=== PATIENT | female | born 1965 | race Two or more races ===

== ENCOUNTER 2017-04-29 20:56 | Emergency (ER) | payer MEDICARE ==
[~2017-04-29] VITALS: Ht 132.1 cm; Wt 33.1 kg
[2017-04-29 20:56] VITALS: BP 112/66
--- NOTE | 2017-04-29 21:10 | Emergency Room Report ---
History of Present Illness General Chief Complaint: Behavioral Complaint Source: Patient (Neftaly Read M.D.) Present Illness HPI The patient is brought in from a [facility] via EMS. She's anxious and has headache. She has Coburn's syndrome. 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 She's anxious because she's trying to return to [place]. She tried to get help today he was unable to. She's denies suicidal or homicidal ideation at this time. No fever, NVD, change vision, dysuria, URI sy, chest pain. No polies. (Neftaly Read M.D.) Allergies: Coded Allergies: No Known Allergies (Unverified , 04/29/17) Patient History Past Medical History: see triage record, DM, other - Coburn's syndrome Social History: Denies: smoking, alcohol use, drug use Social History Narrative from [place] Now: No Reviewed Nursing Documentation: PMH: Agreed, PSxH: Agreed (Neftaly Read M.D.) Nursing Documentation-PMH Past Medical History: No History, Except For Hx Cardiac Problems: No - Coburn Syndrome Hx Diabetes: Yes (Neftaly Read M.D.) Review of Systems All Other Systems: negative except mentioned in HPI (Neftaly Read M.D.) Physical Exam Vital Signs Date Time Temp Pulse Resp B/P (MAP) Pulse Ox O2 Delivery O2 Flow Rate FiO2 04/29/17 20:48 98.2 86 18 112/66 99 Room Air Sp02 EP Interpretation: reviewed, normal General Appearance: no apparent distress, alert, GCS 15, other - short stature Eyes: bilateral eye normal inspection, bilateral eye PERRL ENT: moist mucus membranes Neck: full range of motion, supple, no bony tend Respiratory: lungs clear, normal breath sounds, no rhonchi Cardiovascular #1: regular rate, rhythm, no edema Cardiovascular #2: 2+ radial (L) Gastrointestinal: normal bowel sounds, non tender, soft, no mass, non-distended Genitourinary: no CVA tenderness Musculoskeletal: back normal, normal range of motion, other - widened nailbeds (like clubbing) Neurologic: alert, oriented x3, motor strength/tone normal, DTRs symmetric, SLR negative, cerebellar normal, normal gait, speech normal Psychiatric: no suicidal/homicidal ideation, depressed affect, anxious - pressured Skin: normal color, no rash, other - see MS re nails (Neftaly Read M.D.) Medical Decision Making Diagnostic Impression: Primary Impression: Depression Qualified Codes: F32.9 - Major depressive disorder, single episode, unspecified Additional Impressions: Hyperglycemia Diabetes Qualified Codes: E11.9 - Type 2 diabetes mellitus without complications Situational crisis Turners syndrome ER Course Patient syndrome that presents with anxiety and depression due to social situation. She denies suicidal ideation at this time. She states she's not taking medication at the moment. She's also not taking medication for diabetes. Differential includes exacerbation of underlying psychopathy, electrolyte imbalance, hyperglycemia, and other endocrine disorders amongst others. Based on her clinical exam she appears stable however we need to get EKG, and labs. There are no respiratory symptoms at this time. The patient will be treated with IV hydration. She'll also receive a small dose of Ativan. Blood glucose is high. She's treated with a bolus of saline and with continued IV hydration. Glucose still high after bolus. Metformin started. Continued hydration. Plan is repeat Accu-Chek in the morning. We will request a nursing home social worker evaluation. Accucheck AM is 177. Signed out to Dr. Oliva. Laboratory Tests Test 04/29/17 21:40 White Blood Count 7.6 K/UL (4.8-10.8) Red Blood Count 4.44 M/UL (4.20-5.40) Hemoglobin 13.7 G/DL (12.0-16.0) Hematocrit 39.0 % (37.0-47.0) Mean Corpuscular Volume 88 FL (80-99) Mean Corpuscular Hemoglobin 30.9 PG (27.0-31.0) Mean Corpuscular Hemoglobin Concent 35.2 G/DL (32.0-36.0) Red Cell Distribution Width 11.1 % (11.6-14.8) L Platelet Count 298 K/UL (150-450) Mean Platelet Volume 5.8 FL (6.5-10.1) L Neutrophils (%) (Auto) 66.3 % (45.0-75.0) Lymphocytes (%) (Auto) 26.4 % (20.0-45.0) Monocytes (%) (Auto) 5.4 % (1.0-10.0) Eosinophils (%) (Auto) 0.9 % (0.0-3.0) Basophils (%) (Auto) 1.0 % (0.0-2.0) Urine Color Pale yellow Urine Appearance Clear Urine pH 6.5 (4.5-8.0) Urine Specific [place] 1.010 (1.005-1.035) Urine Protein Negative (NEGATIVE) Urine Glucose (UA) 4+ (NEGATIVE) H Urine Ketones 2+ (NEGATIVE) H Urine Occult Blood Negative (NEGATIVE) Urine Nitrite Negative (NEGATIVE) Urine Bilirubin Negative (NEGATIVE) Urine Urobilinogen Normal MG/DL (0.0-1.0) Urine Leukocyte Esterase Negative (NEGATIVE) Sodium Level 136 mEQ/L (135-145) Potassium Level 3.4 mEQ/L (3.4-4.9) Chloride Level 99 mEQ/L (98-107) Carbon Dioxide Level 22 mEQ/L (20-30) Anion Gap 15 (5-15) Blood Urea Nitrogen 12 mg/dL (7-23) Creatinine 0.6 mg/dL (0.5-0.9) Estimate Glomerular Filtration Rate > 60 mL/min (>60) Glucose Level 494 mg/dL (74-106) H Calcium Level 8.9 mg/dL (8.6-10.2) Total Bilirubin 0.4 mg/dL (0.0-1.2) Aspartate Amino Transferase (AST) 12 U/L (5-40) Alanine Aminotransferase (ALT) 33 U/L (3-33) Alkaline Phosphatase 98 U/L (35-104) Total Creatine Kinase 58 U/L (26-140) Troponin I < 0.30 ng/mL (<=0.30) Total Protein 6.3 g/dL (6.6-8.7) L Albumin 4.0 g/dL (3.5-5.2) Globulin 2.3 g/dL Albumin/Globulin Ratio 1.7 (1.0-2.7) Thyroid Stimulating Hormone (TSH) 3.980 uIU/mL (0.300-4.500) Salicylates Level < 1 mg/dL (10-30) L Urine Opiates Screen Negative (NEGATIVE) Acetaminophen Level < 10 ug/mL (10-30) L Urine Barbiturates Screen Negative (NEGATIVE) Phencyclidine (PCP) Screen Negative (NEGATIVE) Urine Amphetamines Screen Negative (NEGATIVE) Urine Benzodiazepines Screen Negative (NEGATIVE) Urine Cocaine Screen Negative (NEGATIVE) Urine Marijuana (THC) Screen Negative (NEGATIVE) Serum Alcohol < 10 mg/dL (Neftaly Read M.D.) ER Course Received signout 52-year-old woman, history of Coburn syndrome, depression, diabetes, states that she came via bus from [place] to [place] 2 days ago to "start the a new life", patient now states that she wants to go back to [place] however has no way to get back clear. Otherwise at this time she has no medical complaints. No SI or HI Pending social work consult (Morales Oliva M.D.) EKG Diagnostic Results Rate: normal Rhythm: NSR ST Segments: no acute changes (Neftaly Read M.D.) Rhythm Strip Diag. Results EP Interpretation: yes Rhythm: NSR, no PVC's, no ectopy (Neftaly Read M.D.) Last Vital Signs Date Time Temp Pulse Resp B/P (MAP) Pulse Ox O2 Delivery O2 Flow Rate FiO2 04/30/17 12:18 97.8 82 16 107/69 99 Room Air Status: improved (Neftaly Read M.D.) Disposition: HOME, SELF-CARE - [facility] care facility Condition: Improved Scripts Blood-Glucose Meter, Drum-Type (ACCU-CHEK) 1 Each Kit EACH DAILY, #1 Prov: Neftaly Read M.D. 04/30/17 Metformin Hcl* (METFORMIN HCL*) 500 Mg Tablet 500 MG ORAL TWICE A DAY, #60 TAB Prov: Neftaly Read M.D. 04/30/17 Neftaly Read M.D. Apr 29, 2017 21:10 Morales Oliva M.D. Apr 30, 2017 06:40
[2017-04-29] MEDS ORDERED: LORazepam 1mg tab ORAL ONE (21:15)
[2017-04-29 22:01] LABS: EOSINOPHILS % (AUTO) 0.9 % (0.0-3.0); LYMPHOCYTES % (AUTO) 26.4 % (20.0-45.0); MEAN CORPUSCULAR HEMOGLOBIN 30.9 PG (27.0-31.0); MEAN CORPUSCULAR HGB CONC 35.2 G/DL (32.0-36.0); MEAN CORPUSCULAR VOLUME 88 FL (80-99); MEAN PLATELET VOLUME 5.8 FL (6.5-10.1); MONOCYTES % (AUTO) 5.4 % (1.0-10.0); NEUTROPHILS % (AUTO) 66.3 % (45.0-75.0); PLATELET COUNT 298 K/UL (150-450); RED BLOOD COUNT 4.44 M/UL (4.20-5.40); RED CELL DISTRIBUTION WIDTH 11.1 % (11.6-14.8); WHITE BLOOD COUNT 7.6 K/UL (4.8-10.8)
[2017-04-29 22:06] LABS: APPEARANCE,URINE CLEAR; KETONES,URINE 2+ (NEGATIVE); LEUKOCYTE ESTERASE ,URINE NEGATIVE (NEGATIVE); NITRITE,URINE NEGATIVE (NEGATIVE); PH,URINE 6.5 (4.5-8.0); PROTEIN,URINE NEGATIVE (NEGATIVE); UROBILINOGEN,URINE NORMAL MG/DL (0.0-1.0)
[2017-04-29 22:25] LABS: TROPONIN I < 0.30 ng/mL (<=0.30)
[2017-04-29 22:29] LABS: ACETAMINOPHEN < 10 ug/mL (10-30); ALANINE AMINOTRANSFERASE 33 U/L (3-33); ALBUMIN/GLOBULIN RATIO 1.7 (1.0-2.7); ALCOHOL < 10 mg/dL; ANION GAP 15 (5-15); ASPARTATE AMINO TRANSFERASE 12 U/L (5-40); CALCIUM 8.9 mg/dL (8.6-10.2); CARBON DIOXIDE 22 mEQ/L (20-30); CHLORIDE 99 mEQ/L (98-107); CREATININE 0.6 mg/dL (0.5-0.9); GLOMERULAR FILTRATION RATE > 60 mL/min (>60); HEMOLYSIS 3; POTASSIUM 3.4 mEQ/L (3.4-4.9); SODIUM 136 mEQ/L (135-145); TOTAL PROTEIN 6.3 g/dL (6.6-8.7)
[2017-04-29 22:56] VITALS: BP 119/68
[2017-04-30 00:56] VITALS: BP 109/61
[2017-04-30 02:56] VITALS: BP 120/69
[2017-04-30 04:56] VITALS: BP 110/63
[2017-04-30] MEDS ORDERED: ACCU-CHEK1 EAC5 MC (04:57)
[2017-04-30] MEDS ORDERED: METFORMIN HCL500 M1 ORAL (04:57)
[2017-04-30 06:56] VITALS: BP 108/69
[2017-04-30 12:17] VITALS: BP 107/69
[2017-04-30 12:18] VITALS: BP 107/69
--- NOTE | 2017-04-30 14:42 | Cardiology Report ---
APPROVED REPORT EKG Measurement Heart [id number] Normal sinus rhythm with sinus arrhythmia Normal ECG
== END 2017-04-30 12:23 | disposition home or self-care (01) ==
LOC: EDBD 20:56 → EMR 23:30
DX: F32.9 Major depressive disorder, single episode, unspecified (principal); E11.65 Type 2 diabetes mellitus with hyperglycemia; F43.20 Adjustment disorder, unspecified; F41.9 Anxiety disorder, unspecified; Q96.9 Turner's syndrome, unspecified; R51 Headache
CPT/HCPCS: 36415; 80053; 80300; 81003; 82550; 82962; 84443; 84484; 85025; 93005; 96360; 96361; 99284; G0480; 80329

== ENCOUNTER 2017-09-29 17:36 | Inpatient (IN) | payer MEDICARE ==
[~2017-09-29] VITALS: Ht 121.9 cm; Wt 31.8 kg
[~2017-09-29 17:36] MED LIST: ACCU-CHEK1 EAC5 MC; METFORMIN HCL500 M1 ORAL; NKM
[2017-09-29 18:05] VITALS: BP 148/87
[2017-09-29 19:03] LABS: APPEARANCE,URINE CLEAR; BILIRUBIN, URINE NEGATIVE (NEGATIVE); COLOR,URINE PALE YELLOW; GLUCOSE, URINE (UA) 4+ (NEGATIVE); KETONES,URINE NEGATIVE (NEGATIVE); LEUKOCYTE ESTERASE ,URINE NEGATIVE (NEGATIVE); NITRITE,URINE NEGATIVE (NEGATIVE); PH,URINE 5 (4.5-8.0); PROTEIN,URINE NEGATIVE (NEGATIVE); UROBILINOGEN,URINE NORMAL MG/DL (0.0-1.0)
[2017-09-29 19:05] LABS: BASOPHILS % (AUTO) 0.8 % (0.0-2.0); EOSINOPHILS % (AUTO) 0.3 % (0.0-3.0); HEMATOCRIT 43.5 % (37.0-47.0); HEMOGLOBIN 14.8 G/DL (12.0-16.0); MEAN CORPUSCULAR VOLUME 88 FL (80-99); MONOCYTES % (AUTO) 4.6 % (1.0-10.0); NEUTROPHILS % (AUTO) 75.4 % (45.0-75.0); PLATELET COUNT 351 K/UL (150-450); RED BLOOD COUNT 4.94 M/UL (4.20-5.40); RED CELL DISTRIBUTION WIDTH 11.1 % (11.6-14.8)
[2017-09-29 19:12] LABS: ANION GAP 10 mmol/L (5-15); BLOOD UREA NITROGEN 15 mg/dL (7-18); CALCIUM 8.9 MG/DL (8.5-10.1); CARBON DIOXIDE 24 MMOL/L (21-32); CHLORIDE 101 MMOL/L (98-107); CREATININE 0.7 MG/DL (0.55-1.30); POTASSIUM 3.9 MMOL/L (3.5-5.1); SODIUM 135 MMOL/L (136-145)
[2017-09-29 19:16] LABS: ALANINE AMINOTRANSFERASE 41 U/L (12-78); ALBUMIN 3.7 G/DL (3.4-5.0); ALBUMIN/GLOBULIN RATIO 1.1 (1.0-2.7); ALKALINE PHOSPHATASE 117 U/L (46-116); ASPARTATE AMINO TRANSFERASE 16 U/L (15-37); BILIRUBIN,TOTAL 0.4 MG/DL (0.2-1.0)
[2017-09-29] MEDS: metFORMIN 500mg tab ORAL SCH ×2 (19:19→19:34)
[2017-09-29 19:37] VITALS: BP 108/64
[2017-09-29] MEDS ORDERED: Mylanta II UD 30ml ORAL PRN (21:45)
[2017-09-29] MEDS ORDERED: Nitroglycerin Subl 0.4mg tab SL PRN (21:45)
[2017-09-29] MEDS ORDERED: Morphine Sulfate 2mg/ml Inj IVP PRN (21:45)
[2017-09-29] MEDS ORDERED: Miralax 17gm pkt ORAL PRN (21:45)
[2017-09-29] MEDS ORDERED: Ketorolac 30mg Inj IV PRN (21:45)
[2017-09-29] MEDS ORDERED: Albuterol/Ipratropium 3ml neb HHN PRN (21:45)
--- NOTE | 2017-09-29 21:57 | Emergency Room Report ---
History of Present Illness General Chief Complaint: Headache Source: Patient Present Illness HPI Patient 52 female brought in by EMS after increased headache in generalized weakness. The patient prior history of type 2 diabetes. She had reportedly been noncompliant with her medications. Patient states she prior history of Coburn's syndrome. She denies any fever. Allergies: Coded Allergies: No Known Allergies (Unverified , 04/29/17) Patient History Past Medical History: see triage record Reviewed Nursing Documentation: PMH: Agreed, PSxH: Agreed Nursing Documentation-PMH Hx Diabetes: Yes Review of Systems All Other Systems: negative except mentioned in HPI Physical Exam Vital Signs Date Time Temp Pulse Resp B/P (MAP) Pulse Ox O2 Delivery O2 Flow Rate FiO2 09/29/17 17:30 98.5 92 16 148/87 99 Room Air 98.4 Sp02 EP Interpretation: reviewed, normal General Appearance: normal inspection, well appearing, no apparent distress, alert, thin, Chronically Ill Head: atraumatic ENT: normal ENT inspection, hearing grossly normal, normal voice Neck: normal inspection, full range of motion, supple, no bony tend Respiratory: normal inspection, lungs clear, normal breath sounds, no respiratory distress, no retraction, no wheezing Cardiovascular #1: regular rate, rhythm, no edema Gastrointestinal: normal inspection, normal bowel sounds, non tender, soft, no guarding, no hernia Genitourinary: no CVA tenderness Musculoskeletal: normal inspection, back normal, normal range of motion Neurologic: normal inspection, alert, oriented x3, responsive, supply chain analyst III-XII nml as tested, speech normal Psychiatric: normal inspection, judgement/insight normal, mood/affect normal Skin: normal inspection, normal color, no rash Medical Decision Making Diagnostic Impression: Primary Impression: Uncontrolled diabetes mellitus Additional Impression: Coburn syndrome ER Course Patient presented for headache and elevated blood sugar. Differential diagnoses include was not limited to medication noncompliance, diabetic ketoacidosis, abscess among other. Because of complexity of patient's case laboratory testing and imaging studies were ordered. The patient given IV fluids as well as IV insulin and metformin. Patient noted to have elevated blood sugar. Dr. Echevarria was contacted for inpatient management due to complexity of medical condition. Labs Test 09/29/17 18:36 White Blood Count 9.0 K/UL (4.8-10.8) Red Blood Count 4.94 M/UL (4.20-5.40) Hemoglobin 14.8 G/DL (12.0-16.0) Hematocrit 43.5 % (37.0-47.0) Mean Corpuscular Volume 88 FL (80-99) Mean Corpuscular Hemoglobin 29.9 PG (27.0-31.0) Mean Corpuscular Hemoglobin Concent 34.0 G/DL (32.0-36.0) Red Cell Distribution Width 11.1 % (11.6-14.8) Platelet Count 351 K/UL (150-450) Mean Platelet Volume 6.0 FL (6.5-10.1) Neutrophils (%) (Auto) 75.4 % (45.0-75.0) Lymphocytes (%) (Auto) 19.0 % (20.0-45.0) Monocytes (%) (Auto) 4.6 % (1.0-10.0) Eosinophils (%) (Auto) 0.3 % (0.0-3.0) Basophils (%) (Auto) 0.8 % (0.0-2.0) Urine Color Pale yellow Urine Appearance Clear Urine pH 5 (4.5-8.0) Urine Specific [place] 1.010 (1.005-1.035) Urine Protein Negative (NEGATIVE) Urine Glucose (UA) 4+ (NEGATIVE) Urine Ketones Negative (NEGATIVE) Urine Occult Blood 1+ (NEGATIVE) Urine Nitrite Negative (NEGATIVE) Urine Bilirubin Negative (NEGATIVE) Urine Urobilinogen Normal MG/DL (0.0-1.0) Urine Leukocyte Esterase Negative (NEGATIVE) Urine RBC 2-4 /HPF (0 - 2) Urine WBC 0-2 /HPF (0 - 2) Urine Squamous Epithelial Cells Few /LPF (NONE/OCC) Urine Bacteria Few /HPF (NONE) Sodium Level 135 MMOL/L (136-145) Potassium Level 3.9 MMOL/L (3.5-5.1) Chloride Level 101 MMOL/L (98-107) Carbon Dioxide Level 24 MMOL/L (21-32) Anion Gap 10 mmol/L (5-15) Blood Urea Nitrogen 15 mg/dL (7-18) Creatinine 0.7 MG/DL (0.55-1.30) Estimat Glomerular Filtration Rate > 60 mL/min (>60) Glucose Level 465 MG/DL (74-106) Calcium Level 8.9 MG/DL (8.5-10.1) Total Bilirubin 0.4 MG/DL (0.2-1.0) Aspartate Amino Transf (AST/SGOT) 16 U/L (15-37) Alanine Aminotransferase (ALT/SGPT) 41 U/L (12-78) Alkaline Phosphatase 117 U/L (46-116) Troponin I 0.000 ng/mL (0.000-0.056) Total Protein 7.1 G/DL (6.4-8.2) Albumin 3.7 G/DL (3.4-5.0) Globulin 3.4 g/dL Albumin/Globulin Ratio 1.1 (1.0-2.7) Last Vital Signs Date Time Temp Pulse Resp B/P (MAP) Pulse Ox O2 Delivery O2 Flow Rate FiO2 09/29/17 19:37 98.4 16 108/64 99 Room Air 98.4 09/29/17 17:30 92 Status: unchanged Disposition: ADMITTED INPATIENT Condition: Serious Referrals: NON PHYSICIAN (PCP) Jonh Bravo Sep 29, 2017 21:57
[2017-09-30] VITALS: BP 100/56
[2017-09-30 06:36] LABS: BASOPHILS % (AUTO) 0.7 % (0.0-2.0); EOSINOPHILS % (AUTO) 0.4 % (0.0-3.0); HEMATOCRIT 39.6 % (37.0-47.0); HEMOGLOBIN 13.6 G/DL (12.0-16.0); LYMPHOCYTES % (AUTO) 13.6 % (20.0-45.0); MEAN CORPUSCULAR VOLUME 88 FL (80-99); MONOCYTES % (AUTO) 4.3 % (1.0-10.0); NEUTROPHILS % (AUTO) 81.1 % (45.0-75.0); PLATELET COUNT 304 K/UL (150-450); RED BLOOD COUNT 4.49 M/UL (4.20-5.40); RED CELL DISTRIBUTION WIDTH 11.6 % (11.6-14.8); WHITE BLOOD COUNT 11.9 K/UL (4.8-10.8)
[2017-09-30 07:13] LABS: ALANINE AMINOTRANSFERASE 31 U/L (12-78); ALBUMIN 2.9 G/DL (3.4-5.0); ALKALINE PHOSPHATASE 78 U/L (46-116); ANION GAP 9 mmol/L (5-15); ASPARTATE AMINO TRANSFERASE 12 U/L (15-37); BILIRUBIN,TOTAL 0.7 MG/DL (0.2-1.0); BLOOD UREA NITROGEN 8 mg/dL (7-18); CALCIUM 7.8 MG/DL (8.5-10.1); CARBON DIOXIDE 23 MMOL/L (21-32); CHLORIDE 108 MMOL/L (98-107); CHOLESTEROL 213 MG/DL (< 200); CREATININE 0.4 MG/DL (0.55-1.30); HDL CHOLESTEROL 89 MG/DL (40-60); POTASSIUM 3.4 MMOL/L (3.5-5.1); SODIUM 140 MMOL/L (136-145); TRIGLYCERIDES 101 MG/DL (30-150)
[2017-09-30] MEDS: NovoLOG Insulin Flexpen SUBQ SCH ×4 (07:21→21:21)
[2017-09-30 08:00] VITALS: BP 98/56
[2017-09-30] MEDS: Heparin 5000 units/ml inj SUBQ SCH ×2 (08:33→21:22)
[2017-09-30] MEDS: metFORMIN 500mg tab ORAL SCH ×2 (11:56→16:48)
[2017-09-30 12:00] VITALS: BP 120/68
--- NOTE | 2017-09-30 12:47 | History and Physical ---
History of Present Illness General Date patient seen: Sep 29, 2017 Reason for Hospitalization: Headache Present Illness HPI 52 female with hx of type 2 diabetes, HTN, Coburn's syndrome brought n by EMS after increased headache and generalized weakness. She had reportedly been noncompliant with her medications. Her BS was around 500 and she is admitted for further treatment. Allergies: Coded Allergies: No Known Allergies (Unverified , 04/29/17) Medication History Scheduled Metformin Hcl* (Metformin Hcl*), 500 MG ORAL TWICE A DAY No Known Medications* (NKM - No Known Medications*), 0 ., (Reported) Durable Medical Equipment Blood-Glucose Meter, Drum-Type (Accu-Chek), EACH MC DAILY, (DME) Patient History Healthcare decision maker Resuscitation status Full Code Advanced Directive on File Past Medical/Surgical History Past Medical/Surgical History: (1) Coburn syndrome Physical Exam General Appearance: WD/WN Lines, tubes and drains: peripheral HEENT: normocephalic Neck: non-tender, other - neckweb Breasts: no masses Cardiovascular/Chest: normal rate Abdomen: normal bowel sounds, no organomegaly Genitourinary/Rectal: normal genital exam, normal prostate exam Skin Exam: normal pigmentation Last 24 Hour Vital Signs Date Time Temp Pulse Resp B/P (MAP) Pulse Ox O2 Delivery O2 Flow Rate FiO2 09/30/17 08:00 98.4 77 19 98/56 98 09/30/17 00:00 98.2 82 19 100/56 98 09/29/17 22:53 98.4 16 108/64 99 Room Air 98.4 09/29/17 19:37 98.4 16 108/64 99 Room Air 98.4 09/29/17 18:05 98.4 16 148/87 99 Room Air 98.4 09/29/17 17:30 98.5 92 16 148/87 99 Room Air 98.4 Intake and Output 09/29/17 09/30/17 19:00 07:00 Intake Total 0 ml 600 ml Balance 0 ml 600 ml Intake Oral 0 ml IV Total 600 ml # Voids 2 Laboratory Tests Test 09/29/17 18:36 09/30/17 06:00 White Blood Count 9.0 K/UL (4.8-10.8) 11.9 K/UL (4.8-10.8) H Red Blood Count 4.94 M/UL (4.20-5.40) 4.49 M/UL (4.20-5.40) Hemoglobin 14.8 G/DL (12.0-16.0) 13.6 G/DL (12.0-16.0) Hematocrit 43.5 % (37.0-47.0) 39.6 % (37.0-47.0) Mean Corpuscular Volume 88 FL (80-99) 88 FL (80-99) Mean Corpuscular Hemoglobin 29.9 PG (27.0-31.0) 30.2 PG (27.0-31.0) Mean Corpuscular Hemoglobin Concent 34.0 G/DL (32.0-36.0) 34.2 G/DL (32.0-36.0) Red Cell Distribution Width 11.1 % (11.6-14.8) L 11.6 % (11.6-14.8) Platelet Count 351 K/UL (150-450) 304 K/UL (150-450) Mean Platelet Volume 6.0 FL (6.5-10.1) L 5.8 FL (6.5-10.1) L Neutrophils (%) (Auto) 75.4 % (45.0-75.0) H 81.1 % (45.0-75.0) H Lymphocytes (%) (Auto) 19.0 % (20.0-45.0) L 13.6 % (20.0-45.0) L Monocytes (%) (Auto) 4.6 % (1.0-10.0) 4.3 % (1.0-10.0) Eosinophils (%) (Auto) 0.3 % (0.0-3.0) 0.4 % (0.0-3.0) Basophils (%) (Auto) 0.8 % (0.0-2.0) 0.7 % (0.0-2.0) Urine Color Pale yellow Urine Appearance Clear Urine pH 5 (4.5-8.0) Urine Specific [place] 1.010 (1.005-1.035) Urine Protein Negative (NEGATIVE) Urine Glucose (UA) 4+ (NEGATIVE) H Urine Ketones Negative (NEGATIVE) Urine Occult Blood 1+ (NEGATIVE) H Urine Nitrite Negative (NEGATIVE) Urine Bilirubin Negative (NEGATIVE) Urine Urobilinogen Normal MG/DL (0.0-1.0) Urine Leukocyte Esterase Negative (NEGATIVE) Urine RBC 2-4 /HPF (0 - 2) H Urine WBC 0-2 /HPF (0 - 2) Urine Squamous Epithelial Cells Few /LPF (NONE/OCC) Urine Bacteria Few /HPF (NONE) Sodium Level 135 MMOL/L (136-145) L 140 MMOL/L (136-145) Potassium Level 3.9 MMOL/L (3.5-5.1) 3.4 MMOL/L (3.5-5.1) L Chloride Level 101 MMOL/L (98-107) 108 MMOL/L (98-107) H Carbon Dioxide Level 24 MMOL/L (21-32) 23 MMOL/L (21-32) Anion Gap 10 mmol/L (5-15) 9 mmol/L (5-15) Blood Urea Nitrogen 15 mg/dL (7-18) 8 mg/dL (7-18) Creatinine 0.7 MG/DL (0.55-1.30) 0.4 MG/DL (0.55-1.30) L Estimat Glomerular Filtration Rate > 60 mL/min (>60) > 60 mL/min (>60) Glucose Level 465 MG/DL (74-106) H 140 MG/DL (74-106) #H Calcium Level 8.9 MG/DL (8.5-10.1) 7.8 MG/DL (8.5-10.1) L Total Bilirubin 0.4 MG/DL (0.2-1.0) 0.7 MG/DL (0.2-1.0) Aspartate Amino Transf (AST/SGOT) 16 U/L (15-37) 12 U/L (15-37) L Alanine Aminotransferase (ALT/SGPT) 41 U/L (12-78) 31 U/L (12-78) Alkaline Phosphatase 117 U/L (46-116) H 78 U/L (46-116) Troponin I 0.000 ng/mL (0.000-0.056) Total Protein 7.1 G/DL (6.4-8.2) 5.8 G/DL (6.4-8.2) L Albumin 3.7 G/DL (3.4-5.0) 2.9 G/DL (3.4-5.0) L Globulin 3.4 g/dL 2.9 g/dL Albumin/Globulin Ratio 1.1 (1.0-2.7) 1.0 (1.0-2.7) Hemoglobin A1c 11.1 % (4.3-6.0) H Triglycerides Level 101 MG/DL (30-150) Cholesterol Level 213 MG/DL (< 200) H LDL Cholesterol 115 mg/dL (<100) H HDL Cholesterol 89 MG/DL (40-60) H Cholesterol/HDL Ratio 2.4 (3.3-4.4) L Thyroid Stimulating Hormone (TSH) 1.644 uiU/mL (0.358-3.740) Height (Feet): 4 Height (Inches): 0.00 Weight (Pounds): 70 Medications Current Medications Medications (Trade) Dose Ordered Sig/Melvi Route PRN Reason Start Time Stop Time Status Last Admin Dose Admin Acetaminophen (Tylenol) 650 mg Q4H PRN ORAL T>100.5 09/29/17 21:45 10/29/17 21:44 Al Hydroxide/Mg Hydroxide (Mylanta II) 30 ml Q6H PRN ORAL dyspepsia 09/29/17 21:45 10/29/17 21:44 Albuterol/ Ipratropium (Albuterol/ Ipratropium) 3 ml Q4H PRN HHN Shortness of Breath 09/29/17 21:45 10/04/17 21:44 Clonidine HCl (Catapres Tab) 0.1 mg Q4H PRN ORAL SBP > 160mmHg 09/29/17 21:45 10/29/17 21:44 Dextrose (Dextrose 50%) STAT PRN IV Hypoglycemia 09/29/17 21:45 10/29/17 21:44 Heparin Sodium (Porcine) (Heparin 5000 units/ml) 5,000 units EVERY 12 HOURS SUBQ 09/30/17 09:00 10/30/17 08:59 09/30/17 08:33 Insulin Aspart (NovoLOG) BEFORE MEALS AND HS SUBQ 09/30/17 06:30 10/30/17 06:29 09/30/17 11:53 Ketorolac Tromethamine (Toradol 30mg) 30 mg Q6H PRN IV Moderate Pain (Pain Scale 4-6) 09/29/17 21:45 10/04/17 21:44 Metformin HCl (Glucophage) 500 mg TIAC ORAL 09/29/17 18:00 10/29/17 17:59 09/30/17 11:56 Morphine Sulfate (Morphine Sulfate) 2 mg Q4H PRN IVP Severe Pain (Pain Scale 7-10) 09/29/17 21:45 10/06/17 21:44 Nitroglycerin (Ntg) 0.4 mg Q5M X 3 DOSES PRN SL Prn Chest Pain 09/29/17 21:45 10/29/17 21:44 Ondansetron HCl (Zofran) 4 mg Q6H PRN IVP Nausea & Vomiting 09/29/17 21:45 10/29/17 21:44 Polyethylene Glycol (Miralax) 17 gm HSPRN PRN ORAL Constipation 09/29/17 21:45 10/29/17 21:44 Sodium Chloride 1,000 ml @ 100 mls/hr Q10H IVLG 09/29/17 23:00 10/29/17 22:59 09/30/17 08:43 Temazepam (Restoril) 15 mg HSPRN PRN ORAL Insomnia 09/29/17 21:45 10/06/17 21:44 Assessment/Plan Problem List: (1) Uncontrolled diabetes mellitus ICD Codes: E11.65 - Type 2 diabetes mellitus with hyperglycemia SNOMED: 160521572, 83187001 (2) Coburn syndrome ICD Codes: Q96.9 - Coburn's syndrome, unspecified SNOMED: 69756946, 48819858 (3) Homeless ICD Codes: Z59.0 - Homelessness SNOMED: 52885075 Assessment/Plan sliding scale IV fluids endo [facility] executive secretary social welfare. SONG BLANDON Sep 30, 2017 12:47
--- NOTE | 2017-09-30 13:25 | Pulmonology Progress Note ---
Assessment/Plan Problems: (1) Uncontrolled diabetes mellitus (2) Coburn syndrome (3) Homeless Assessment/Plan endo evaluation social servies monitor BP Subjective ROS Limited/Unobtainable: No Constitutional: Reports: no symptoms HEENT: Repors: no symptoms Allergies: Coded Allergies: No Known Allergies (Unverified , 04/29/17) Objective Last 24 Hour Vital Signs Date Time Temp Pulse Resp B/P (MAP) Pulse Ox O2 Delivery O2 Flow Rate FiO2 09/30/17 08:00 98.4 77 19 98/56 98 09/30/17 00:00 98.2 82 19 100/56 98 09/29/17 22:53 98.4 16 108/64 99 Room Air 98.4 09/29/17 19:37 98.4 16 108/64 99 Room Air 98.4 09/29/17 18:05 98.4 16 148/87 99 Room Air 98.4 09/29/17 17:30 98.5 92 16 148/87 99 Room Air 98.4 Intake and Output 09/29/17 09/30/17 19:00 07:00 Intake Total 0 ml 600 ml Balance 0 ml 600 ml Intake Oral 0 ml IV Total 600 ml # Voids 2 General Appearance: WD/WN HEENT: normocephalic, atraumatic Respiratory/Chest: chest wall non-tender, lungs clear Cardiovascular: normal peripheral pulses, normal rate Abdomen: normal bowel sounds, soft, non tender Genitourinary: normal external genitalia Extremities: no clubbing Skin: no rash Laboratory Tests 09/29/17 18:36: White Blood Count 9.0, Red Blood Count 4.94, Hemoglobin 14.8, Hematocrit 43.5, Mean Corpuscular Volume 88, Mean Corpuscular Hemoglobin 29.9, Mean Corpuscular Hemoglobin Concent 34.0, Red Cell Distribution Width 11.1L, Platelet Count 351, Mean Platelet Volume 6.0L, Neutrophils (%) (Auto) 75.4H, Lymphocytes (%) (Auto) 19.0L, Monocytes (%) (Auto) 4.6, Eosinophils (%) (Auto) 0.3, Basophils (%) (Auto ) 0.8, Urine Color Pale yellow, Urine Appearance Clear, Urine pH 5, Urine Specific [place] 1.010, Urine Protein Negative, Urine Glucose (UA) 4+H, Urine Ketones Negative, Urine Occult Blood 1+H, Urine Nitrite Negative, Urine Bilirubin Negative, Urine Urobilinogen Normal, Urine Leukocyte Esterase Negative , Urine RBC 2-4H, Urine WBC 0-2, Urine Squamous Epithelial Cells Few, Urine Bacteria Few, Sodium Level 135L, Potassium Level 3.9, Chloride Level 101, Carbon Dioxide Level 24, Anion Gap 10, Blood Urea Nitrogen 15, Creatinine 0.7, Estimat Glomerular Filtration Rate > 60, Glucose Level 465H, Calcium Level 8.9, Total Bilirubin 0.4, Aspartate Amino Transf (AST/SGOT) 16, Alanine Aminotransferase (ALT/SGPT) 41, Alkaline Phosphatase 117H, Troponin I 0.000, Total Protein 7.1, Albumin 3.7, Globulin 3.4, Albumin/Globulin Ratio 1.1 09/30/17 06:00: White Blood Count 11.9H, Red Blood Count 4.49, Hemoglobin 13.6, Hematocrit 39.6 , Mean Corpuscular Volume 88, Mean Corpuscular Hemoglobin 30.2, Mean Corpuscular Hemoglobin Concent 34.2, Red Cell Distribution Width 11.6, Platelet Count 304, Mean Platelet Volume 5.8L, Neutrophils (%) (Auto) 81.1H, Lymphocytes (%) (Auto) 13.6L, Monocytes (%) (Auto) 4.3, Eosinophils (%) (Auto) 0.4, Basophils (%) (Auto) 0.7, Sodium Level 140, Potassium Level 3.4L, Chloride Level 108H, Carbon Dioxide Level 23, Anion Gap 9, Blood Urea Nitrogen 8, Creatinine 0.4L, Estimat Glomerular Filtration Rate > 60, Glucose Level 140#H, Calcium Level 7.8L, Total Bilirubin 0.7, Aspartate Amino Transf (AST/SGOT) 12L, Alanine Aminotransferase (ALT/SGPT) 31, Alkaline Phosphatase 78, Total Protein 5.8L, Albumin 2.9L, Globulin 2.9, Albumin/Globulin Ratio 1.0, Hemoglobin A1c 11.1H, Triglycerides Level 101, Cholesterol Level 213H, LDL Cholesterol 115H, HDL Cholesterol 89H, Cholesterol/HDL Ratio 2.4L, Thyroid Stimulating Hormone ( TSH) 1.644 Current Medications Medications (Trade) Dose Ordered Sig/Melvi Route PRN Reason Start Time Stop Time Status Last Admin Dose Admin Acetaminophen (Tylenol) 650 mg Q4H PRN ORAL T>100.5 2/12/18 21:45 10/29/17 21:44 Al Hydroxide/Mg Hydroxide (Mylanta II) 30 ml Q6H PRN ORAL dyspepsia 09/29/17 21:45 10/29/17 21:44 Albuterol/ Ipratropium (Albuterol/ Ipratropium) 3 ml Q4H PRN HHN Shortness of Breath 09/29/17 21:45 10/04/17 21:44 Clonidine HCl (Catapres Tab) 0.1 mg Q4H PRN ORAL SBP > 160mmHg 09/29/17 21:45 10/29/17 21:44 Dextrose (Dextrose 50%) STAT PRN IV Hypoglycemia 09/29/17 21:45 10/29/17 21:44 Heparin Sodium (Porcine) (Heparin 5000 units/ml) 5,000 units EVERY 12 HOURS SUBQ 09/30/17 09:00 10/30/17 08:59 09/30/17 08:33 Insulin Aspart (NovoLOG) BEFORE MEALS AND HS SUBQ 09/30/17 06:30 10/30/17 06:29 09/30/17 11:53 Ketorolac Tromethamine (Toradol 30mg) 30 mg Q6H PRN IV Moderate Pain (Pain Scale 4-6) 09/29/17 21:45 10/04/17 21:44 Metformin HCl (Glucophage) 500 mg TIAC ORAL 09/29/17 18:00 10/29/17 17:59 09/30/17 11:56 Morphine Sulfate (Morphine Sulfate) 2 mg Q4H PRN IVP Severe Pain (Pain Scale 7-10) 09/29/17 21:45 10/06/17 21:44 Nitroglycerin (Ntg) 0.4 mg Q5M X 3 DOSES PRN SL Prn Chest Pain 09/29/17 21:45 10/29/17 21:44 Ondansetron HCl (Zofran) 4 mg Q6H PRN IVP Nausea & Vomiting 09/29/17 21:45 10/29/17 21:44 Polyethylene Glycol (Miralax) 17 gm HSPRN PRN ORAL Constipation 09/29/17 21:45 10/29/17 21:44 Sodium Chloride 1,000 ml @ 100 mls/hr Q10H IVLG 09/29/17 23:00 10/29/17 22:59 09/30/17 08:43 Temazepam (Restoril) 15 mg HSPRN PRN ORAL Insomnia 09/29/17 21:45 10/06/17 21:44 SONG BLANDON Sep 30, 2017 13:25
[2017-09-30 16:20] VITALS: BP 121/67
[2017-09-30 20:00] VITALS: BP 125/67
[2017-10-01] VITALS: BP 119/66
[2017-10-01 04:00] VITALS: BP 108/60
[2017-10-01] MEDS: metFORMIN 500mg tab ORAL SCH ×2 (05:39→12:01)
[2017-10-01] MEDS: NovoLOG Insulin Flexpen SUBQ SCH ×2 (06:19→12:02)
[2017-10-01 07:39] LABS: CARBON DIOXIDE 22 MMOL/L (21-32); CHLORIDE 108 MMOL/L (98-107); POTASSIUM 3.4 MMOL/L (3.5-5.1); SODIUM 139 MMOL/L (136-145)
[2017-10-01 07:40] LABS: ALANINE AMINOTRANSFERASE 29 U/L (12-78); ALBUMIN 2.9 G/DL (3.4-5.0); ALBUMIN/GLOBULIN RATIO 0.8 (1.0-2.7); ALKALINE PHOSPHATASE 82 U/L (46-116); ANION GAP 10 mmol/L (5-15); ASPARTATE AMINO TRANSFERASE 15 U/L (15-37); BILIRUBIN,TOTAL 0.4 MG/DL (0.2-1.0); BLOOD UREA NITROGEN 7 mg/dL (7-18); CALCIUM 8.2 MG/DL (8.5-10.1); CREATININE 0.5 MG/DL (0.55-1.30); PHOSPHORUS 3.8 MG/DL (2.5-4.9)
[2017-10-01 08:03] LABS: HEMOGLOBIN 13.7 G/DL (12.0-16.0)
[2017-10-01 08:04] LABS: BASOPHILS % (AUTO) 0.5 % (0.0-2.0); EOSINOPHILS % (AUTO) 0.4 % (0.0-3.0); LYMPHOCYTES % (AUTO) 18.5 % (20.0-45.0); MEAN CORPUSCULAR VOLUME 89 FL (80-99); MONOCYTES % (AUTO) 5.3 % (1.0-10.0); NEUTROPHILS % (AUTO) 75.3 % (45.0-75.0); PLATELET COUNT 298 K/UL (150-450); RED CELL DISTRIBUTION WIDTH 11.6 % (11.6-14.8)
[2017-10-01] MEDS: Heparin 5000 units/ml inj SUBQ SCH (08:22)
[2017-10-01 08:24] VITALS: BP 121/69
[2017-10-01 11:32] VITALS: BP 113/68
--- NOTE | 2017-10-01 14:44 | Pulmonology Progress Note ---
Assessment/Plan Problems: (1) Uncontrolled diabetes mellitus (2) Coburn syndrome (3) Homeless Assessment/Plan endo evaluation social servies monitor BP Subjective ROS Limited/Unobtainable: No Constitutional: Reports: no symptoms Respiratory: Reports: no symptoms Allergies: Coded Allergies: No Known Allergies (Unverified , 04/29/17) Objective Last 24 Hour Vital Signs Date Time Temp Pulse Resp B/P (MAP) Pulse Ox O2 Delivery O2 Flow Rate FiO2 10/01/17 11:32 99.0 75 20 113/68 97 10/01/17 08:24 99.2 84 19 121/69 98 10/01/17 04:00 100 Room Air 10/01/17 04:00 97.3 70 20 108/60 100 10/01/17 00:00 99 Room Air 10/01/17 00:00 97.9 75 20 119/66 99 09/30/17 20:00 98.2 82 20 125/67 99 09/30/17 20:00 99 Room Air 09/30/17 16:20 98.0 82 19 121/67 98 Intake and Output 09/30/17 10/01/17 19:00 07:00 Intake Total 1900 ml 1000 ml Balance 1900 ml 1000 ml Intake Oral 800 ml 200 ml IV Total 1100 ml 800 ml # Voids 4 2 # Bowel Movements 1 1 General Appearance: cachetic Respiratory/Chest: chest wall non-tender, lungs clear Breasts: no masses Cardiovascular: normal rate Abdomen: normal bowel sounds, soft, non tender Extremities: no cyanosis, no clubbing Laboratory Tests 10/01/17 05:25: White Blood Count 11.0H, Red Blood Count 4.60, Hemoglobin 13.7, Hematocrit 41.0 , Mean Corpuscular Volume 89, Mean Corpuscular Hemoglobin 29.8, Mean Corpuscular Hemoglobin Concent 33.5, Red Cell Distribution Width 11.6, Platelet Count 298, Mean Platelet Volume 5.8L, Neutrophils (%) (Auto) 75.3H, Lymphocytes (%) (Auto) 18.5L, Monocytes (%) (Auto) 5.3, Eosinophils (%) (Auto) 0.4, Basophils (%) (Auto) 0.5, Sodium Level 139, Potassium Level 3.4L, Chloride Level 108H, Carbon Dioxide Level 22, Anion Gap 10, Blood Urea Nitrogen 7, Creatinine 0.5L, Estimat Glomerular Filtration Rate > 60, Glucose Level 105, Calcium Level 8.2L, Phosphorus Level 3.8, Magnesium Level 1.9, Total Bilirubin 0.4, Aspartate Amino Transf (AST/SGOT) 15, Alanine Aminotransferase (ALT/SGPT) 29, Alkaline Phosphatase 82, Total Protein 6.4, Albumin 2.9L, Globulin 3.5, Albumin/Globulin Ratio 0.8L Current Medications Medications (Trade) Dose Ordered Sig/Melvi Route PRN Reason Start Time Stop Time Status Last Admin Dose Admin Acetaminophen (Tylenol) 650 mg Q4H PRN ORAL T>100.5 09/29/17 21:45 10/29/17 21:44 Al Hydroxide/Mg Hydroxide (Mylanta II) 30 ml Q6H PRN ORAL dyspepsia 09/29/17 21:45 10/29/17 21:44 Albuterol/ Ipratropium (Albuterol/ Ipratropium) 3 ml Q4H PRN HHN Shortness of Breath 09/29/17 21:45 10/04/17 21:44 Clonidine HCl (Catapres Tab) 0.1 mg Q4H PRN ORAL SBP > 160mmHg 09/29/17 21:45 10/29/17 21:44 Dextrose (Dextrose 50%) STAT PRN IV Hypoglycemia 09/29/17 21:45 10/29/17 21:44 Heparin Sodium (Porcine) (Heparin 5000 units/ml) 5,000 units EVERY 12 HOURS SUBQ 09/30/17 09:00 10/30/17 08:59 10/01/17 08:22 Insulin Aspart (NovoLOG) BEFORE MEALS AND HS SUBQ 09/30/17 06:30 10/30/17 06:29 10/01/17 12:02 Ketorolac Tromethamine (Toradol 30mg) 30 mg Q6H PRN IV Moderate Pain (Pain Scale 4-6) 09/29/17 21:45 10/04/17 21:44 Metformin HCl (Glucophage) 500 mg TIAC ORAL 09/29/17 18:00 10/29/17 17:59 10/01/17 12:01 Morphine Sulfate (Morphine Sulfate) 2 mg Q4H PRN IVP Severe Pain (Pain Scale 7-10) 09/29/17 21:45 10/06/17 21:44 Nitroglycerin (Ntg) 0.4 mg Q5M X 3 DOSES PRN SL Prn Chest Pain 09/29/17 21:45 10/29/17 21:44 Ondansetron HCl (Zofran) 4 mg Q6H PRN IVP Nausea & Vomiting 09/29/17 21:45 10/29/17 21:44 Polyethylene Glycol (Miralax) 17 gm HSPRN PRN ORAL Constipation 09/29/17 21:45 10/29/17 21:44 Sodium Chloride 1,000 ml @ 100 mls/hr Q10H IVLG 09/29/17 23:00 10/29/17 22:59 10/01/17 05:10 Temazepam (Restoril) 15 mg HSPRN PRN ORAL Insomnia 09/29/17 21:45 10/06/17 21:44 SONG BLANDON Oct 01, 2017 14:44
--- NOTE | 2017-10-02 15:54 | Discharge Summary ---
Discharge Summary Hospital Course Date of Admission Sep 29, 2017 at 21:50 Date of Discharge Oct 01, 2017 at 15:55 Admitting Diagnosis UNCONTROLLED DIABETES HPI Elyse Forte is a 52 year old female who was admitted on Sep 29, 2017 at 21: 50 for Uncontrolled Diabetes Hospital Course [id number] Discharge Discharge Disposition Patient signed homeless discharge Discharge Diagnoses: Santa Landis NP Oct 02, 2017 15:54
--- NOTE | 2017-10-02 22:46 | Discharge Summary 2 SIG ---
DATE OF ADMISSION: 09/29/2017 DATE OF DISCHARGE: 10/01/2017 BRIEF HOSPITAL COURSE: The patient is a 52-year-old female with history of type 2 diabetes, hypertension, and Coburn syndrome, was brought in by EMS after increased headache and generalized weakness. She was reported to be noncompliant with her medications. On evaluation at ED, glucose was 465. Anion gap of 10. She was given IV fluids, insulin and metformin and was admitted for evaluation of uncontrolled diabetes mellitus. Blood sugars were monitored. She was placed on insulin sliding scale. Hemoglobin A1c was 11. TSH was normal. She had better glucose control. She was eventually discharged home. The patient was seen by social service and was offered a placement, however, the patient refused. FINAL DIAGNOSES: 1. Diabetes mellitus, out of control. 2. Coburn syndrome. 3. Homelessness. DISPOSITION: The patient was discharged. DISCHARGE MEDICATIONS: Continue with metformin 500 mg b.i.d. DISCHARGE INSTRUCTIONS: Follow up with PMD in a week. Mikey Echevarria M.D. I have been assigned to dictate discharge summary on this account and I was not involved in the patient's management. Santa Landis N.P. DR: JIMI JOB#: [id number] CC:
== END 2017-10-01 15:55 | disposition home or self-care (01) | DRG 639 ==
LOC: EDBD 17:36 → EMR 20:05 → 4E 21:50 → EDBEDREQ 22:14
DX: E11.65 Type 2 diabetes mellitus with hyperglycemia (principal); I10 Essential (primary) hypertension; Q96.9 Turner's syndrome, unspecified; Z59.0 Homelessness; Z91.14 Patient's other noncompliance with medication regimen
CPT/HCPCS: 36415; 80053; 80061; 81001; 82962; 83036; 83735; 84100; 84443; 84484; 85025; 87081; 99285; J1815